=== PATIENT | female | born 1965 | race Caucasian/White ===

== ENCOUNTER 2022-05-27 16:44 | Inpatient (IN) ==
[2022-05-27 18:12] LABS: PT Patient Result 11.1 SECS (10.1-12.1)
[2022-05-27 18:19] LABS: Basophils % 0.4 % (0.0-0.8); Eosinophils # 0.1 10*3/uL (0.0-0.87); Eosinophils % 1.3 % (0.00-10.9); Hemoglobin 13.7 GM/DL (12.0-16.0); Immature Granulocytes % 0.4 %; Immature Granulocytes Absolute 0.03 #; Lymphocytes # 2.1 10*3/uL (1.4-4.0); Lymphocytes % 29.2 % (21.3-54.2); Mean Corpuscular HGB Conc 31.9 GM/DL (32-36); Mean Corpuscular Volume 86.9 FL (87-102); Mean Platelet Volume 10.1 FL (9.6-12.0); Monocytes # 0.5 10*3/uL (0.11-0.8); Monocytes % 6.5 % (1.7-12.7); Neutrophils % 62.2 % (38.7-73.9); Platelet Count 163 T/CUMM (130-400); Red Blood Count 4.95 MC/CUMM (3.8-5.5); Red Cell Distribution Width 15.2 % (9.3-17.3); White Blood Count 7.1 T/CUMM (4-12)
[2022-05-27 18:23] LABS: Albumin 3.6 G/DL (3.4-5.0); Bilirubin,Total 0.9 MG/DL (0.20-1.00); Calcium 10.6 MG/DL (8.5-10.1); Osmolality,Calculated 276.7 MOS/KG (273-304); Potassium 4.4 MMOL/L (3.5-5.1); Total Protein 7.7 G/DL (6.4-8.2)
[2022-05-27] MEDS ORDERED: ASPIRIN 300 MG SUPP RECTAL STA (20:35)
[2022-05-27] MEDS ORDERED: FUROSEMIDE 40 MG/4 ML VIAL IV STA (20:36)
[2022-05-27] MEDS ORDERED: hydrALAZINE 20 MG/1 ML VIAL IV PRN (20:40)
[2022-05-27] MEDS ORDERED: ONDANSETRON 4 MG/2 ML VIAL IV PRN (20:40)
[2022-05-27] MEDS ORDERED: ALBUTEROL/IPRATROPIUM 3 ML NEB RESP TX PRN (20:40)
[2022-05-27] MEDS ORDERED: NICOTINE 21 MG/24 HR PATCH TRANSDERM PRN (20:40)
[2022-05-27] MEDS ORDERED: ACETAMINOPHEN 325 MG SUPP RECTAL PRN (20:42)
[2022-05-27] MEDS ORDERED: SODIUM CHLORIDE 0.9% 1,000 ML IV SCH (21:00)
[2022-05-28] MEDS: INSULIN LISPRO 100 UNIT/ML SUBCUT SCH ×4 (00:45→18:09)
[2022-05-28 06:15] LABS: Basophils % 0.4 % (0.0-0.8); Eosinophils # 0.1 10*3/uL (0.0-0.87); Eosinophils % 1.7 % (0.00-10.9); Hematocrit 44.7 VOL% (35.7-47.0); Hemoglobin 14.2 GM/DL (12.0-16.0); Immature Granulocytes % 0.5 %; Immature Granulocytes Absolute 0.04 #; Lymphocytes # 2.7 10*3/uL (1.4-4.0); Lymphocytes % 35.7 % (21.3-54.2); Mean Corpuscular HGB Conc 31.8 GM/DL (32-36); Mean Corpuscular Volume 86.5 FL (87-102); Mean Platelet Volume 10.4 FL (9.6-12.0); Monocytes # 0.5 10*3/uL (0.11-0.8); Monocytes % 7.1 % (1.7-12.7); Neutrophils % 54.6 % (38.7-73.9); Platelet Count 155 T/CUMM (130-400); Red Blood Count 5.17 MC/CUMM (3.8-5.5); Red Cell Distribution Width 15.1 % (9.3-17.3); White Blood Count 7.6 T/CUMM (4-12)
[2022-05-28 06:33] LABS: Calcium 10.6 MG/DL (8.5-10.1); Osmolality,Calculated 276.5 MOS/KG (273-304); Potassium 3.8 MMOL/L (3.5-5.1); Risk Ratio 2.53; VLDL Cholesterol 17.4 MG/DL
[2022-05-28] MEDS ORDERED: PANTOPRAZOLE 40 MG VIAL IV SCH (09:00)
[2022-05-28] MEDS ORDERED: ASPIRIN 300 MG SUPP RECTAL SCH (09:00)
[2022-05-28] MEDS: HEPARIN 5,000 UNIT/1 ML VIAL SUBCUT SCH ×2 (09:36→21:25)
[2022-05-28] MEDS ORDERED: predniSONE 20 MG TABLET PO SCH (10:00)
[2022-05-28] MEDS: carvediloL 6.25 MG TABLET PO SCH ×2 (14:59→16:16)
[2022-05-28] MEDS ORDERED: ACETAMINOPHEN 325 MG TABLET PO PRN (15:55)
[2022-05-28] MEDS: CLOPIDOGREL 75 MG TABLET PO SCH (16:16)
[2022-05-28] MEDS: ROSUVASTATIN 20 MG TABLET PO SCH (21:25)
[2022-05-28] MEDS: ZALEPLON 5 MG CAPSULE PO PRN (21:25)
[2022-05-29] MEDS: INSULIN LISPRO 100 UNIT/ML SUBCUT SCH ×5 (00:51→22:22)
[2022-05-29 05:43] LABS: Basophils % 0.5 % (0.0-0.8); Eosinophils # 0.1 10*3/uL (0.0-0.87); Eosinophils % 2.1 % (0.00-10.9); Immature Granulocytes % 0.2 %; Immature Granulocytes Absolute 0.01 #; Lymphocytes % 47.8 % (21.3-54.2); Mean Corpuscular HGB Conc 31.8 GM/DL (32-36); Mean Corpuscular Volume 87.8 FL (87-102); Mean Platelet Volume 10.5 FL (9.6-12.0); Monocytes # 0.5 10*3/uL (0.11-0.8); Monocytes % 7.1 % (1.7-12.7); Neutrophils % 42.3 % (38.7-73.9); Platelet Count 152 T/CUMM (130-400); Red Blood Count 5.01 MC/CUMM (3.8-5.5); Red Cell Distribution Width 15.4 % (9.3-17.3); White Blood Count 6.3 T/CUMM (4-12)
[2022-05-29 05:59] LABS: Calcium 11.2 MG/DL (8.5-10.1); Osmolality,Calculated 281.3 MOS/KG (273-304); Potassium 4.5 MMOL/L (3.5-5.1)
[2022-05-29] MEDS ORDERED: ASPIRIN 325 MG TABLET PO SCH (09:00)
[2022-05-29] MEDS: HEPARIN 5,000 UNIT/1 ML VIAL SUBCUT SCH ×2 (09:13→21:07)
[2022-05-29] MEDS: PANTOPRAZOLE 40 MG TABLET PO SCH (09:14)
[2022-05-29] MEDS: CLOPIDOGREL 75 MG TABLET PO SCH (09:14)
[2022-05-29] MEDS: carvediloL 6.25 MG TABLET PO SCH ×2 (09:14→18:36)
[2022-05-29] MEDS ORDERED: clonazePAM 0.5 MG TABLET PO PRN (14:35)
[2022-05-29] MEDS: GABAPENTIN 300 MG CAPSULE PO SCH ×2 (17:47→21:07)
[2022-05-29] MEDS: ROSUVASTATIN 20 MG TABLET PO SCH (21:07)
[2022-05-29] MEDS: ZALEPLON 5 MG CAPSULE PO PRN (21:07)
[2022-05-30 05:45] LABS: Calcium 10.9 MG/DL (8.5-10.1); Potassium 3.8 MMOL/L (3.5-5.1)
[2022-05-30] MEDS: INSULIN LISPRO 100 UNIT/ML SUBCUT SCH ×4 (08:15→21:19)
[2022-05-30] MEDS: CHOLECALCIFEROL 5,000 UNIT TABLET PO SCH (08:26)
[2022-05-30] MEDS: PANTOPRAZOLE 40 MG TABLET PO SCH (08:26)
[2022-05-30] MEDS: ESCITALOPRAM 10 MG TABLET PO SCH (08:26)
[2022-05-30] MEDS: lamoTRIgine 100 MG TABLET PO SCH (08:26)
[2022-05-30] MEDS: CLOPIDOGREL 75 MG TABLET PO SCH (08:26)
[2022-05-30] MEDS: HEPARIN 5,000 UNIT/1 ML VIAL SUBCUT SCH ×2 (08:27→21:17)
[2022-05-30] MEDS: carvediloL 6.25 MG TABLET PO SCH (08:27)
[2022-05-30] MEDS: GABAPENTIN 600 MG TABLET PO SCH ×3 (08:27→21:18)
[2022-05-30] MEDS: carvediloL 3.125 MG TABLET PO SCH (17:47)
[2022-05-30] MEDS: ROSUVASTATIN 20 MG TABLET PO SCH (21:17)
[2022-05-30] MEDS: ZALEPLON 5 MG CAPSULE PO PRN (21:18)
[2022-05-31 06:15] LABS: Calcium 10.5 MG/DL (8.5-10.1); Osmolality,Calculated 286.8 MOS/KG (273-304)
[2022-05-31] MEDS: PANTOPRAZOLE 40 MG TABLET PO SCH (08:42)
[2022-05-31] MEDS: CHOLECALCIFEROL 5,000 UNIT TABLET PO SCH (08:42)
[2022-05-31] MEDS: CLOPIDOGREL 75 MG TABLET PO SCH (08:42)
[2022-05-31] MEDS: ESCITALOPRAM 10 MG TABLET PO SCH (08:42)
[2022-05-31] MEDS: lamoTRIgine 100 MG TABLET PO SCH (08:42)
[2022-05-31] MEDS: carvediloL 3.125 MG TABLET PO SCH (08:42)
[2022-05-31] MEDS: HEPARIN 5,000 UNIT/1 ML VIAL SUBCUT SCH (08:43)
[2022-05-31] MEDS: GABAPENTIN 600 MG TABLET PO SCH (08:43)
[2022-05-31] MEDS: INSULIN LISPRO 100 UNIT/ML SUBCUT SCH (10:54)
[2022-05-31 12:29] VITALS: BP 153/71
== END 2022-05-31 12:10 | disposition home health service (06) | DRG 65 ==
LOC: EDUNIT# → EDBD → N.ED 16:44 → N.EDINP 20:40 → N.3E 22:20
PROVIDERS: ADMIT Emergency Medicine; ATTEND Emergency Medicine